=== PATIENT | female | born 1995 | race Caucasian/White ===

== ENCOUNTER 2018-04-17 20:31 | Inpatient (IN) | payer OTHER ==
[~2018-04-17] VITALS: Ht 160 cm; Wt 54.4 kg
[~2018-04-17 20:31] MED LIST: INSU100C4 SQ; INSU100I13 SQ; SUBC1EAC MC
[2018-04-17] MEDS ORDERED: ONDANSETRON PF 4 MG/2 ML VIAL. IV ONE (21:00)
[2018-04-17] MEDS ORDERED: FAMOTIDINE 20 MG/2 ML VIAL IVP ONE (21:00)
[2018-04-17] MEDS ORDERED: IV NORMAL SALINE 1,000ML 1,000 ML IV ONE ×2 (21:00→21:30)
[2018-04-17 21:17] LABS: BACTERIA,URINE 0 /HPF (0-FEW); BILIRUBIN,URINE NEG (NEG); CLARITY,URINE CLEAR; COLOR,URINE STRAW; GLUCOSE,URINE >=1000 mg/dL (NEG); NITRITE,URINE NEG (NEG); RBC,URINE 0 /HPF (0-2); SQUAMOUS EPITHELIAL CELL,UR OCC /LPF; UROBILINOGEN,URINE 0.2 mg/dL (0.2 mg/dL); WBC,URINE 0 /HPF (0-4)
[2018-04-17 21:24] LABS: BASO # 0.1 x10^3/uL (0.0-0.2); BASO % 1 % (0-3); EOS # 0.3 x10^3/uL (0.0-0.7); EOS % 3 % (0-3); HEMOGLOBIN 15.9 g/dL (12.0-15.5); LYMPH # 2.4 x10^3/uL (1.0-4.8); LYMPH % 24 % (24-48); MEAN CORPUSCULAR HEMOGLOBIN 31 pg (25-35); MEAN CORPUSCULAR HGB CONC 33 g/dL (31-37); MEAN CORPUSCULAR VOLUME 94 fL (79-100); MONO # 0.5 x10^3/uL (0.0-1.1); MONO % 5 % (0-9); NEUT # 6.9 x10^3uL (1.8-7.7); NEUT % 68 % (31-73); PLATELET COUNT 402 x10^3/uL (140-400); RED CELL DISTRIBUTION WIDTH 12.8 % (11.5-14.5); WHITE BLOOD COUNT 10.2 x10^3/uL (4.0-11.0)
[2018-04-17] MEDS ORDERED: IV DEXTROSE 5 %-0.45 % NACL 1,000 ML IV SCH (21:27)
[2018-04-17] MEDS ORDERED: INSULIN REGULAR 100 UNIT/ML 3ML VIAL. IV ONE (21:30)
[2018-04-17] MEDS ORDERED: INSULIN REGULAR 100 UNIT/ML 3ML VIAL. SQ ONE (21:30)
[2018-04-17] MEDS ORDERED: INSULIN REGULAR VIAL 150 UNIT in 0.9 % SODIUM CHLORIDE 150ML 150 ML IV PRN (21:30)
[2018-04-17 21:35] LABS: ALBUMIN 4.4 g/dL (3.4-5.0); ALBUMIN/GLOBULIN RATIO 1.1 (1.0-1.7); CALCIUM 9.9 mg/dL (8.5-10.1); GFR 68.1; POTASSIUM 4.4 mmol/L (3.5-5.1); TOTAL BILIRUBIN 0.8 mg/dL (0.2-1.0); TOTAL PROTEIN 8.3 g/dL (6.4-8.2)
[2018-04-17] MEDS ORDERED: ONDANSETRON PF 4 MG/2 ML VIAL. IV PRN (22:15)
--- NOTE | 2018-04-17 22:20 | PHYS DOC ---
Past History Past Medical History: Anxiety, Depression, Diabetes, Liver Disease Past Surgical History: Tonsillectomy Additional Past Surgical Histo: breast augmentation Smoking: Less than 1pk/day Alcohol Use: None Drug Use: None Adult General Chief Complaint Chief Complaint: HYPERGLYCEMIA HPI HPI 22-year-old female who is a type I diabetic presents with report of nausea and vomiting with generalized malaise which started this morning. Patient now reports she is having palpitations and feels dizzy. Patient reports she is compliant with her medications as she wears a insulin pump. Patient reports she checked her blood sugar 1 hour ago and noted it was 405. Patient reports she did give herself 7 units of NovoLog. Reports she is unable to keep any of her other medications down. Patient does report her children have had recent nausea and vomiting. Denies dysuria. Denies . Patient does report recent breast augmentation surgery. Patient also reports she recently started her menstrual period Review of Systems Review of Systems Constitutional: Denies fever or chills; generalized malaise and weakness Eyes: Denies change in visual acuity, redness, or eye pain [] HENT: Denies nasal congestion or sore throat [] Respiratory: Denies cough or shortness of breath [] Cardiovascular: Denies chest pain, reports palpitations GI: Reports abdominal pain, nausea, and vomiting; denies diarrhea : Denies dysuria or hematuria; denies Musculoskeletal: Denies back pain or joint pain [] Integument: Denies rash or skin lesions [] Neurologic: Denies headaches or sensory changes [] Complete systems were reviewed and found to be within normal limits, except as documented in this note. Current Medications Current Medications Current Medications Medications (Trade) Dose Ordered Sig/Jayna Start Time Stop Time Status Last Admin Dose Admin Dextrose/Sodium Chloride 1,000 ml @ 0 mls/hr Q0M 04/17/18 21:27 Famotidine (Pepcid Vial) 20 mg 1X ONCE 04/17/18 21:00 04/17/18 21:01 DC 04/17/18 21:07 20 MG Insulin Human Regular (HumuLIN R VIAL) 6 unit 1X ONCE 04/17/18 21:30 04/17/18 21:31 DC 04/17/18 21:26 6 UNIT Insulin Human Regular 150 unit/ Sodium Chloride 151.5 ml @ 0 mls/hr CONT PRN PRN 04/17/18 21:30 Ondansetron HCl (Zofran) 4 mg 1X ONCE 04/17/18 21:00 04/17/18 21:01 DC 04/17/18 21:07 4 MG Sodium Chloride 1,000 ml @ 1,000 mls/hr 1X ONCE 04/17/18 21:30 04/17/18 22:29 04/17/18 21:27 1,000 MLS/HR Allergies Allergies Allergies Coded Allergies Type Severity Reaction Last Updated Verified zolpidem tartrate Allergy Intermediate hives and hallucinations. 03/10/14 No Physical Exam Physical Exam Constitutional: Well developed, well nourished, uncomfortable HENT: Normocephalic, atraumatic, mucous membranes tacky, breath with ketosis smell Eyes: PERRL, EOMI, conjunctiva normal, no discharge. [] Neck: Normal range of motion, no tenderness, supple, no meningeal signs Cardiovascular: Heart rate tachycardic, no murmur [] Lungs & Thorax: Bilateral breath sounds clear to auscultation; no wheezes, rales, rhonchi Abdomen: Soft, epigastric mild tenderness Skin: Warm, dry, no erythema, no rash. [] Back: No tenderness, no CVA tenderness. [] Extremities: No tenderness, ROM intact, no edema. [] Neurologic: Alert and oriented X 3, normal motor function, normal sensory function, no focal deficits noted. [] Psychologic: Affect normal, judgement normal, mood normal. [] Current Patient Data Vital Signs Vital Signs Date Time Temp Pulse Resp B/P (MAP) Pulse Ox O2 Delivery O2 Flow Rate FiO2 04/17/18 20:33 97.3 115 18 99 Room Air Lab Results Laboratory Tests Test 04/17/18 20:33 04/17/18 20:55 04/17/18 21:01 04/17/18 21:05 Urine Collection Type Unknown Urine Color Straw Urine Clarity Clear Urine pH 5.0 Urine Specific Star 1.010 Urine Protein Neg (NEG-TRACE) Urine Glucose (UA) >=1000 mg/dL (NEG) Urine Ketones (Stick) >=160 mg/dL (NEG) Urine Blood Mod (NEG) Urine Nitrite Neg (NEG) Urine Bilirubin Neg (NEG) Urine Urobilinogen Dipstick 0.2 mg/dL (0.2 mg/dL) Urine Leukocyte Esterase Neg (NEG) Urine RBC 0 /HPF (0-2) Urine WBC 0 /HPF (0-4) Urine Squamous Epithelial Cells Occ /LPF Urine Bacteria 0 /HPF (0-FEW) POC Urine HCG, Qualitative hcg negative (Negative) Glucose (Fingerstick) 531 mg/dL (70-99) *H White Blood Count 10.2 x10^3/uL (4.0-11.0) Red Blood Count 5.10 x10^6/uL (3.50-5.40) Hemoglobin 15.9 g/dL (12.0-15.5) H Hematocrit 48.0 % (36.0-47.0) H Mean Corpuscular Volume 94 fL (79-100) Mean Corpuscular Hemoglobin 31 pg (25-35) Mean Corpuscular Hemoglobin Concent 33 g/dL (31-37) Red Cell Distribution Width 12.8 % (11.5-14.5) Platelet Count 402 x10^3/uL (140-400) H Neutrophils (%) (Auto) 68 % (31-73) Lymphocytes (%) (Auto) 24 % (24-48) Monocytes (%) (Auto) 5 % (0-9) Eosinophils (%) (Auto) 3 % (0-3) Basophils (%) (Auto) 1 % (0-3) Neutrophils # (Auto) 6.9 x10^3uL (1.8-7.7) Lymphocytes # (Auto) 2.4 x10^3/uL (1.0-4.8) Monocytes # (Auto) 0.5 x10^3/uL (0.0-1.1) Eosinophils # (Auto) 0.3 x10^3/uL (0.0-0.7) Basophils # (Auto) 0.1 x10^3/uL (0.0-0.2) Sodium Level 133 mmol/L (136-145) L Potassium Level 4.4 mmol/L (3.5-5.1) Chloride Level 95 mmol/L (98-107) L Carbon Dioxide Level 17 mmol/L (21-32) L Anion Gap 21 (6-14) H Blood Urea Nitrogen 28 mg/dL (7-20) H Creatinine 1.0 mg/dL (0.6-1.0) Estimated GFR (Cockcroft-Gault) 68.1 BUN/Creatinine Ratio 28 (6-20) H Glucose Level 504 mg/dL (70-99) *H Calcium Level 9.9 mg/dL (8.5-10.1) Total Bilirubin 0.8 mg/dL (0.2-1.0) Aspartate Amino Transferase (AST) 8 U/L (15-37) L Alanine Aminotransferase (ALT) 22 U/L (14-59) Alkaline Phosphatase 104 U/L (46-116) Total Protein 8.3 g/dL (6.4-8.2) H Albumin 4.4 g/dL (3.4-5.0) Albumin/Globulin Ratio 1.1 (1.0-1.7) Lipase 121 U/L (73-393) Acetone Level Sm pos (NEG) Test 04/17/18 22:07 Glucose (Fingerstick) 406 mg/dL (70-99) H EKG EKG [] Radiology/Procedures Radiology/Procedures [] Course & Med Decision Making Course & Med Decision Making Pertinent Labs and Imaging studies reviewed. (See chart for details) Type I diabetic presents with history of present illness and physical exam concerning for possible DKA. Ketosis noted on breath. Patient does appear clinically dehydrated. IV fluid hydration provided 2 L of normal saline. Accu- Chek greater than 500. Insulin bolus of 6 units subcutaneously provided. Labs obtained and posted to chart. Acetone positive. Corrected sodium 139. Anion gap 27. PH 7.185. Insulin drip initiated. Patient requiring admission for further evaluation and treatment. Discussed with Dr. Garvey (hospitalist) who is in agreement with admission. Discussed findings and plan with patient and family , who acknowledge understanding and agreement. Dragon Disclaimer Dragon Disclaimer This electronic medical record was generated, in whole or in part, using a voice recognition dictation system. Departure Departure: Impression: Primary Impression: DKA (diabetic ketoacidoses) Disposition: ADMITTED INPATIENT Admitting Physician: Zhanna Garvey Condition: GUARDED Referrals: CONRAD KENDRICK (PCP) Critical Care Time Critical care time was 30 minutes which includes time at bedside, spent in discussion of patient's care with specialists and/or family members, with interpretation of laboratory and/or radiological studies and is exclusive of procedures. Problem Qualifiers Primary Impression: DKA (diabetic ketoacidoses) Diabetes mellitus type: type 1 Diabetes mellitus complication detail: without coma Qualified Codes: E10.10 - Type 1 diabetes mellitus with ketoacidosis without coma MIGUELINA BELTRE DO Apr 17, 2018 22:20
[2018-04-17 22:22] LABS: BGAS PH 7.19 (7.35-7.45)
[2018-04-17] MEDS ORDERED: POTASSIUM CHLORIDE 20MEQ 100 ML IV ONE (23:45)
[2018-04-18] VITALS (8 sets, daily range): BP systolic 90–121; BP diastolic 36–61
[2018-04-18 05:55] LABS: BASO # 0.1 x10^3/uL (0.0-0.2); BASO % 1 % (0-3); EOS # 0.4 x10^3/uL (0.0-0.7); EOS % 4 % (0-3); HEMATOCRIT 37.7 % (36.0-47.0); HEMOGLOBIN 12.9 g/dL (12.0-15.5); LYMPH # 3.5 x10^3/uL (1.0-4.8); LYMPH % 34 % (24-48); MEAN CORPUSCULAR HEMOGLOBIN 32 pg (25-35); MEAN CORPUSCULAR HGB CONC 34 g/dL (31-37); MEAN CORPUSCULAR VOLUME 92 fL (79-100); MONO # 0.8 x10^3/uL (0.0-1.1); MONO % 8 % (0-9); NEUT # 5.4 x10^3uL (1.8-7.7); NEUT % 53 % (31-73); PLATELET COUNT 332 x10^3/uL (140-400); RED BLOOD COUNT 4.09 x10^6/uL (3.50-5.40); RED CELL DISTRIBUTION WIDTH 12.8 % (11.5-14.5); WHITE BLOOD COUNT 10.2 x10^3/uL (4.0-11.0)
[2018-04-18 06:12] LABS: ALBUMIN 2.8 g/dL (3.4-5.0); CREATININE 0.7 mg/dL (0.6-1.0); GFR 102.8; POTASSIUM 4.3 mmol/L (3.5-5.1); TOTAL BILIRUBIN 0.4 mg/dL (0.2-1.0); TOTAL PROTEIN 5.7 g/dL (6.4-8.2)
[2018-04-18] MEDS ORDERED: IBUP-577 PO (09:02)
[2018-04-18] MEDS ORDERED: IBUPROFEN 800 MG TABLET. PO SCH (09:15)
--- NOTE | 2018-04-18 13:05 | NUR ---
[facility]charge [facility] Dis[facility] instructions and discharge home medications reviewed with Patient and a copy given. All questions have been answered and understanding verbalized. The following instructions and handouts were given: discharge insructions, education regarding DKA Discontinued lines and drains: Peripheral IV intact. Patient discharged to Home or Self Care withSelf[facility] Ambulated
--- NOTE | 2018-04-18 16:26 | SSS ---
ADMIT DATE: 04/18/2018 HISTORY OF PRESENT ILLNESS: The patient is a 22-year-old female patient who came to the Emergency Room complaining of recurrent bouts of nausea, vomiting, generalized malaise, palpitation, or dizziness. She is compliant with her medication and also her insulin pump; however, she had her periods during which normally her blood sugar becomes very erratic and difficult to control and also her children came home with what seemed to be some form of gastroenteritis and she had had nausea, vomiting, and diarrhea multiple times. She apparently has had breast augmentation surgery recently and was taking ibuprofen and hydrocodone. She was evaluated in the Emergency Room and was found to be extremely hyperglycemic with a blood sugar of 531. Her blood gases showed that she was acidotic with a pH of 7.19, pCO2 of 28, pO2 of 106, bicarbonate was only 10 and oxygen saturation was 97%. She was started on IV fluid and insulin drip and did extremely well. Her anion gap was closed. Her dilutional hyponatremia resolved and her BUN and creatinine has dramatically improved. The insulin drip was discontinued. She was restarted back on her insulin infusion pump. Has eaten her breakfast and basically she is stable to be discharged home. PAST MEDICAL HISTORY: Significant for type 1 diabetes and diabetic retinopathy as well as endometriosis. PAST SURGICAL HISTORY: Significant for 3 sections, tonsillectomy, laparoscopic surgery for ovarian cyst removal and breast augmentation surgery. ALLERGIES: She is apparently intolerant to AMBIEN as she hallucinates MEDICATIONS: She is currently on following medications: She is on ibuprofen 800 mg 3 times a day. She is on NovoLog insulin as per her insulin infusion pump. She is also on Lantus insulin 30 units at bedtime. She is also on hydrocodone/APAP 5/325 one tablet every 6 hours as needed. FAMILY HISTORY: She has one brother who is older has alopecia and Ton's thyroiditis. One brother younger and healthy and one sister is healthy. She does not keep in contact with her biological father. Her mother is still alive at the age of 49. She is known to have hypertension. She is a survivor of ovarian and cervical cancer. SOCIAL HISTORY: She is , has 2 sons and 1 daughter. She smokes less than a pack a day. Specifically she smokes about 6 cigarettes a day. She does not drink alcohol or use any recreational drugs. She is currently unemployed. Her last menstrual period was started yesterday. Her periods are usually irregular and heavy because of the stage 4 endometriosis. PHYSICAL EXAMINATION: GENERAL: On examining her, she was resting slightly propped up in bed, in no apparent respiratory distress. There is no pallor, jaundice, cyanosis, or thyromegaly. No jugular venous distention. No limb edema. VITAL SIGNS: Her heart rate on arrival was 115, blood pressure was 92/38, temperature was 97.3, respiratory rate was 18 and oxygen saturation was 99% on room air. HEAD, EYES, EARS, NOSE, AND THROAT: Showed normocephalic, atraumatic. NECK: Supple. HEART: Showed normal first and second heart sounds with no gallop, rub, or murmur. CHEST: Clear to auscultation. No crepitation or rhonchi. ABDOMEN: Distended, soft, nontender. No guarding or rigidity. No organomegaly. Hernial orifice intact. Bowel sounds normal. NEUROLOGIC: She is awake, alert, responding appropriately. Cranial nerves intact. She moves extremities without difficulty and she ambulates without assistance or assistive devices. LABORATORY DATA: Her lab work on admission showed a white cell count of 10,000, hemoglobin 15.9, hematocrit 48, MCV 94, and platelet count of 402,000. Her chemistry on admission showed that her serum sodium was 133, potassium 4.4, chloride 95, bicarbonate 17, anion gap of 21, BUN 28, creatinine 1, estimated GFR was 68 mL per minute. Her glucose was 504, calcium was 9.9. Total bilirubin, AST, ALT, alkaline phosphatase were normal. Total protein was 8.3, albumin 4.4, and lipase was 121. Her urinalysis was unremarkable and her serum test was negative. The patient was treated with IV fluid as well as insulin drip and did very well. Her sodium has improved. In fact, her serum sodium before discharge was 137, potassium 4.3, chloride 106, bicarbonate 20, anion gap is down to 11, BUN 18, creatinine 0.7. As she has had no further episodes of nausea or vomiting, no diarrhea, she is tolerating her food, her anion gap has normalized, a decision was made to discharge her home to continue on her current medication. On examining her today at the time of discharge, she looked well and was clearly in no apparent respiratory distress. Her heart rate was 90, blood pressure was 103/53, temperature was 97, respiratory rate was 19, and oxygen saturation was 100% on room air. HEAD, EYES, EARS, NOSE, AND THROAT: Showed normocephalic, atraumatic. NECK: Supple. HEART: Showed normal first and second sounds. No gallop, rub, or murmur. CHEST: Clear to auscultation. No crepitation or rhonchi. ABDOMEN: Scaphoid, soft, nontender. NEUROLOGIC: She is awake, alert, responding appropriately. Cranial nerves intact. She moves extremities without difficulty. Her intake over the last 24 hours was 2100. The output was incompletely recorded. Her lab work prior to discharge showed a white cell count of 10,000, hemoglobin 12.9, hematocrit 37.7, MCV 82, and platelet count of 332,000. Her serum sodium was 137, potassium 4.3, chloride 106, bicarbonate 20, anion gap of 11, BUN 18, creatinine 0.7, estimated GFR was 102 mL per minute. Her glucose was 266. Calcium was 8. Total bilirubin, AST, ALT, alkaline phosphatase were normal. Total protein 5.7, albumin 2.8. She will be discharged home to continue on her ibuprofen 800 mg 3 times a day, insulin aspart as well as insulin sliding scale and as per insulin infusion pump. She is also on Lantus insulin 30 units at bedtime. FINAL DISCHARGE DIAGNOSES: 1. Diabetic ketoacidosis. 2. Acute gastroenteritis. 3. Type 1 diabetes mellitus with diabetic retinopathy. JASON BLANCO MD DR: ANAMARIA/kael JOB#: [id number] / [id number]
== END 2018-04-18 13:07 | disposition home or self-care (01) | DRG 682 ==
LOC: ER 20:31 → ICU 23:57 → UNDOADMIN 23:57 → 1 SOUTH 23:57
PROVIDERS: ADMIT Internal Medicine; ATTEND Internal Medicine
DX: N17.0 Acute kidney failure with tubular necrosis (principal); E10.10 Type 1 diabetes mellitus with ketoacidosis without coma; K52.9 Noninfective gastroenteritis and colitis, unspecified; E10.319 Type 1 diabetes mellitus with unspecified diabetic retinopathy without macular edema; N80.9 Endometriosis, unspecified; Z96.41 Presence of insulin pump (external) (internal); F32.9 Major depressive disorder, single episode, unspecified; F41.9 Anxiety disorder, unspecified; Z79.4 Long term (current) use of insulin; F17.210 Nicotine dependence, cigarettes, uncomplicated; Z80.49 Family history of malignant neoplasm of other genital organs; Z82.49 Family history of ischemic heart disease and other diseases of the circulatory system; Z90.49 Acquired absence of other specified parts of digestive tract; Z79.899 Other long term (current) drug therapy; Z88.8 Allergy status to other drugs, medicaments and biological substances
CPT/HCPCS: 36415; 36600; 80053; 81001; 81025; 82010; 82803; 82947; 83690; 83930; 85025; 87641; 96361; 96372; 96374; 96375; J1815; J2405; J3480; S0028; 99285-25; J7030

== ENCOUNTER 2019-11-20 10:59 | Emergency (ER) | payer OTHER ==
[~2019-11-20] VITALS: Ht 160 cm; Wt 55.0 kg
[~2019-11-20 10:59] MED LIST changes: +IBUP-577 PO
[2019-11-20 11:09] VITALS: BP 114/78
[2019-11-20] MEDS ORDERED: MORPHINE SULFATE 4 MG/ML DISP.SYRIN. IV ONE ×2 (11:15→12:30)
[2019-11-20] MEDS ORDERED: ONDANSETRON PF 4 MG/2 ML VIAL. IVP ONE (11:15)
--- NOTE | 2019-11-20 11:29 | PHYS DOC ---
Past History Past Medical History: Anxiety, Depression, Diabetes, Liver Disease Past Surgical History: Tonsillectomy Additional Past Surgical Histo: breast augmentation Smoking: Less than 1pk/day Alcohol Use: None Drug Use: None General Adult EDM: Chief Complaint: DENTAL PROBLEM HPI: HPI: 24-year-old female presents with a left upper dental pain. The patient has had noted infected tooth. Her dentist says he can work on the tooth until the infection improves. She has been azithromycin. I did switch her to clindamycin yesterday. She has been taking her medications. She is also been on [place], but only has a few left. It still hurts a lot and the left cheek is more swollen. She denies fever chills. They did not attempt to drain an abscess. Review of Systems: Review of Systems: Constitutional: Denies fever or chills Eyes: Denies change in visual acuity HENT: left upper dental pain Respiratory: Denies cough or shortness of breath Cardiovascular: Denies chest pain or edema GI: Denies abdominal pain, nausea, vomiting, bloody stools or diarrhea : Denies dysuria Musculoskeletal: Denies back pain or joint pain Integument: Denies rash Neurologic: Denies headache, focal weakness or sensory changes Endocrine: Denies polyuria or polydipsia Lymphatic: Denies swollen glands Psychiatric: Denies depression or anxiety Heart Score: Risk Factors: Risk Factors: DM, Current or recent (<one month) smoker, HTN, HLP, family history of CAD, obesity. Risk Scores: Score 0 - 3: 2.5% MACE over next 6 weeks - Discharge Home Score 4 - 6: 20.3% MACE over next 6 weeks - Admit for Clinical Observation Score 7 - 10: 72.7% MACE over next 6 weeks - Early Invasive Strategies Allergies: Allergies: Allergies Coded Allergies Type Severity Reaction Last Updated Verified zolpidem tartrate Allergy Intermediate hives and hallucinations. 03/10/14 No Physical Exam: PE: Constitutional: Well developed, well nourished, mild acute distress, non-toxic appearance. [] HENT: Normocephalic, atraumatic, bilateral external ears normal, oropharynx moist, palpable abscess above teeth 13 & 14, nose normal. [] Eyes: PERRLA, EOMI, conjunctiva normal, no discharge. [] Neck: Normal range of motion, no tenderness, supple, no stridor. [] Cardiovascular:Heart rate regular rhythm, no murmur [] Lungs & Thorax: Bilateral breath sounds clear to auscultation [] Abdomen: Bowel sounds normal, soft, no tenderness, no masses, no pulsatile masses. [] Skin: Warm, dry, no erythema, no rash. [] Back: No tenderness, no CVA tenderness. [] Extremities: No tenderness, no cyanosis, no clubbing, ROM intact, no edema. [] Neurologic: Alert and oriented X 3, normal motor function, normal sensory function, no focal deficits noted. [] Psychologic: Affect normal, judgement normal, mood normal. [] EKG: EKG: [] Radiology/Procedures: Radiology/Procedures: [] Course & Med Decision Making: Course & Med Decision Making Pertinent Labs and Imaging studies reviewed. (See chart for details) Patient appears to be in significant pain. She was given a total of 8 mg of morphine in the ER. We applied local anesthesia with topical lidocaine. I performed an I&D. See note below for more details. The patient was not able to tolerate thorough evacuation of the abscess. I discussed the case with the oral maxillofacial surgeon Dr. Rodriguez and he agreed to see the patient in clinic today and develop a plan for the patient. The patient was in agreement with this plan and very grateful. She is stable for discharge at this time. I will discharge her with Percocet. [] Yennifer Disclaimer: Yennifer Disclaimer: This electronic medical record was generated, in whole or in part, using a voice recognition dictation system. Incision and Drainage Indication: Dental abscess Procedure: I obtained verbal consent from the patient for incision and drainage of her dental abscess. The patient was was given morphine by IV as well as topical lidocaine for anesthesia. I made an incision with an 11 blade in the abscess. There was purulent bloody fluid expressed. Despite all the medication, the patient was still unable to tolerate compression of the abscess for good drainage. She refused further procedures at this time. The patient tolerated the procedure poorly. Complications: Uncontrolled pain. Departure Departure: Disposition: 01 HOME, SELF-CARE Condition: STABLE Referrals: CONRAD KENDRICK (PCP) Scripts Oxycodone HCl/Acetaminophen (Percocet 5-325 mg Tablet) 1 Each Tablet 1 TAB PO PRN TID PRN for PAIN MDD 3 Tablet(s) for 5 Days, #15 TAB 0 Refills Prov: TRACE GIBBONS DO 11/20/19 TRACE GIBBONS DO November 20, 2019 11:29
[2019-11-20] MEDS ORDERED: BUPIVACAINE MPF 0.5% 30 ML VIAL. IJ ONE ×2 (11:30)
[2019-11-20 11:43] LABS: BASO # 0.1 x10^3/uL (0.0-0.2); BASO % 1 % (0-3); EOS # 0.2 x10^3/uL (0.0-0.7); EOS % 2 % (0-3); HEMATOCRIT 43.5 % (36.0-47.0); HEMOGLOBIN 14.8 g/dL (12.0-15.5); LYMPH # 1.8 x10^3/uL (1.0-4.8); LYMPH % 19 % (24-48); MEAN CORPUSCULAR HEMOGLOBIN 32 pg (25-35); MEAN CORPUSCULAR HGB CONC 34 g/dL (31-37); MEAN CORPUSCULAR VOLUME 95 fL (79-100); MONO # 0.8 x10^3/uL (0.0-1.1); MONO % 9 % (0-9); NEUT # 6.7 x10^3uL (1.8-7.7); NEUT % 70 % (31-73); PLATELET COUNT 241 x10^3/uL (140-400); RED CELL DISTRIBUTION WIDTH 12.7 % (11.5-14.5); WHITE BLOOD COUNT 9.5 x10^3/uL (4.0-11.0)
[2019-11-20] MEDS ORDERED: LIDOCAINE 2% TOPICAL JELLY 5GM TUBE. TP ONE (11:45)
[2019-11-20 11:52] LABS: CALCIUM 9.2 mg/dL (8.5-10.1); CREATININE 0.6 mg/dL (0.6-1.0); GFR 120.8; POTASSIUM 4.5 mmol/L (3.5-5.1)
[2019-11-20 11:59] LABS: ALBUMIN 3.5 g/dL (3.4-5.0); ALBUMIN/GLOBULIN RATIO 0.9 (1.0-1.7); TOTAL BILIRUBIN 0.4 mg/dL (0.2-1.0); TOTAL PROTEIN 7.3 g/dL (6.4-8.2)
[2019-11-20] MEDS ORDERED: OXYC-325 PO (12:36)
== END 2019-11-20 12:39 | disposition home or self-care (01) ==
LOC: ER 10:59
DX: K04.7 Periapical abscess without sinus (principal); E11.9 Type 2 diabetes mellitus without complications; F17.200 Nicotine dependence, unspecified, uncomplicated; Z88.8 Allergy status to other drugs, medicaments and biological substances
CPT/HCPCS: 36415; 41800; 80053; 85025; 96374; 99284; J2270; J2405

== ENCOUNTER 2019-11-22 22:48 | Emergency (ER) | payer OTHER ==
[~2019-11-22] VITALS: Ht 157.5 cm; Wt 57.6 kg
[~2019-11-22 22:48] MED LIST changes: +OXYC-325 PO
--- NOTE | 2019-11-22 23:11 | PHYS DOC ---
Past History Past Medical History: Anxiety, Depression, Diabetes, Liver Disease Past Surgical History: Tonsillectomy Additional Past Surgical Histo: breast augmentation Smoking: Less than 1pk/day Alcohol Use: None Drug Use: None General Adult EDM: Chief Complaint: DENTAL PROBLEM HPI: HPI: 24 year old female with previously diagnosed dental abscess for which patient was seen in ED and then seen in oral/maxillofacial surgeons office presents with report that she accidentally broke one of the stitches that was holding in a drain from her recent I&D. Patient reports she cannot tolerate the pain anymore because it is causing irritation to the side of her mouth. Patient reports she called her oral surgeon who instructed her to remove the drain herself. Patient reports she tried to remove it but was unable to because there is another stitch that is holding it in. Reports she cannot tolerate it anymore and therefore pr esents to the ER for removal. Review of Systems: Review of Systems: Constitutional: Denies fever or chills HENT: Reports dental pain from incision site of I&D of dental abscess Complete systems were reviewed and found to be within normal limits, except as documented in this note. Allergies: Allergies: Allergies Coded Allergies Type Severity Reaction Last Updated Verified zolpidem tartrate Allergy Intermediate hives and hallucinations. 03/10/14 No Physical Exam: PE: Constitutional: Well developed, well nourished, crying, holding ice pack to her left cheek HENT: Normocephalic, atraumatic, oropharynx moist, left maxillary molar region swollen with [place] drain, no purulent discharge noted, poor dentition appreciated with dental caries, appears to have started to partially heal, no bleeding noted Eyes: Conjunctiva normal, no discharge Neck: Normal range of motion, supple Lungs & Thorax: No respiratory distress, equal chest rise and fall Skin: Warm, dry, no erythema Neurologic: Alert and oriented X 3, no focal deficits noted Psychologic: Affect anxious, judgment normal EKG: EKG: [] Radiology/Procedures: Radiology/Procedures: [] Course & Med Decision Making: Course & Med Decision Making Patient presents with request to remove [place] drain from recent I&D of left maxillary dental abscess by oral surgeon on 11/20/2019. Patient requested to have rena drain removed. Reports she talked to her oral surgeon and he had reportedly told patient to do it herself. Patient was unable and therefore presents to ED for removal. Rena drain was successfully removed intact. NO significant bleeding or drainage from wound. [facility] report obtained which noted patient recently was prescribed [place] 5/325mg x 17 tabs and Percocet 5/325mg x 24 tabs since 11/18/19. Patient advised to continue those prescriptions as needed in addition to her previously prescribed antibiotics and other meds from oral surgeon. Patient stable for discharge with outpatient follow-up with PCP. Discussed findings and plan with patient and family, who acknowledge understanding and agreement. Rodríguezon Disclaimer: Yennifer Disclaimer: This electronic medical record was generated, in whole or in part, using a voice recognition dictation system. Additional Procedures Progress Removal of [place] drain s/p I&D of dental abscess: Verbal consent obtained. Time out performed. Hand hygiene utilized. Wound cleaned with ChloraPrep. Tongue depressor utilized for visualization of [place] drain to left maxillary molar region between gums and inner cheek. An absorbable suture noted (likely Vicryl) which was excised with straight Iris scissors and intact Rena drain successfully removed with thumb forceps. Some discomfort noted by patient during procedure but, patient otherwise tolerated procedure well and without difficulty. No significant bleeding or drainage from wound appreciated s/p removal. Departure Departure: Impression: Primary Impression: Encounter for change or removal of drains Additional Impression: Hx of dental abscess Disposition: 01 HOME, SELF-CARE Condition: STABLE Referrals: CONRAD KENDRICK (PCP) Patient Instructions: Dental Abscess Additional Instructions: Continue previously prescribe pain medication and antibiotics and follow closely with your oral surgeon. MIGUELINA BELTRE DO November 22, 2019 23:11
== END 2019-11-22 23:15 | disposition home or self-care (01) ==
LOC: ER 22:48
DX: Z48.03 Encounter for change or removal of drains (principal); K04.7 Periapical abscess without sinus; F41.9 Anxiety disorder, unspecified; F17.200 Nicotine dependence, unspecified, uncomplicated; Z88.8 Allergy status to other drugs, medicaments and biological substances
CPT/HCPCS: 41800; 99283

== ENCOUNTER 2021-02-12 19:32 | Emergency (ER) | payer OTHER ==
[~2021-02-12] VITALS: Ht 157.5 cm; Wt 57.6 kg
[2021-02-12 19:50] VITALS: BP 126/81
--- NOTE | 2021-02-12 21:33 | PHYS DOC ---
Past History Past Medical History: Other Additional Past Medical Histor: patient refuses to answer questions (SEBASTIÁN PALOMINO APRN) Past Surgical History: Other Additional Past Surgical Histo: oral surgery 11/20/2019; refuses to answer questions about others (SEBASTIÁN PALOMINO APRN) Smoking: Less than 1pk/day Alcohol Use: None Drug Use: None (SEBASTIÁN PALOMINO APRN) General Adult EDM: Chief Complaint: FOOT INJURY PAIN HPI: HPI: Patient is a 25-year-old female who presents to the ER for left fifth toe pain after hitting it on the wall today. Patient rates her pain 6 out of 10. She has been taking [id number] pain medication without any relief in her symptoms. Patient is able to bear weight and ambulate with steady gait. Mario santos reports that the pain is sharp and starts in her fifth toe and radiates to her mid foot with tingling in her third and fourth foot. Patient is concerned because she is a type I diabetic and her doctor told her that if she has a fracture in her foot it could lead to osteomyelitis. (SEBASTIÁN PALOMINO APRN) Review of Systems: Review of Systems: 14 body systems of the review of systems have been reviewed. See HPI for pertinent positive and negative responses, otherwise all other systems are negative, nonpertinent or noncontributory (SEBASTIÁN PALOMINO APRN) Allergies: Allergies: Allergies Coded Allergies Type Severity Reaction Last Updated Verified zolpidem tartrate Allergy Intermediate hives and hallucinations. 03/10/14 No diphenhydramine Allergy Unknown 02/12/21 Yes hydrocodone Allergy Unknown 02/12/21 Yes (SEBASTIÁN PALOMINO APRN) Physical Exam: PE: Constitutional: Well developed, well nourished, no acute distress, non-toxic appearance. [] HENT: Normocephalic, atraumatic Eyes: PERRL, conjunctiva normal, no discharge. [] Neck: Normal range of motion, no stridor Cardiovascular: Normal peripheral perfusion Lungs & Thorax: Normal work of breathing, no tachypnea Skin: Warm, dry, no erythema, no rash, ecchymosis and swelling noted to left fifth toe on the dorsal and plantar aspect, patient reports limited range of motion of fifth toe due to pain, neuro intact, patient able to bear weight and ambulate with steady gait.. [] Back: Normal range of motion Extremities: No tenderness, no cyanosis, no clubbing, ROM intact, no edema. [] Neurologic: Alert and oriented X 3, normal motor function, normal sensory function, no focal deficits noted. [] Psychologic: Affect normal, judgement normal, mood normal. [] (SEBASTIÁN PALOMINO APRN) EKG: EKG: [] (SEBASTIÁN PALOMINO APRN) Radiology/Procedures: Radiology/Procedures: PROCEDURE: FOOT LEFT 3V XR FOOT_LEFT 3 VIEWS Clinical indications: Reason: 5th toe pain from hitting a wall Findings: there is a nondisplaced fracture line of the distal shaft and metaphysis of the fifth proximal phalanx seen in the AP projection only. No dislocation or lytic process is seen. No periosteal reaction is evident. IMPRESSION: Nondisplaced fracture of the fifth proximal phalanx. Electronically signed by: Yogi Mckeon MD (02/12/2021 9:58 PM) [id number] DICTATED AND SIGNED BY: YOGI MCKEON MD DATE: 02/12/212155 CC: TRACE GIBBONS DO; CONRAD KENDRICK; SEBASTIÁN PALOMINO APRN ~MTH0 0 (SEBASTIÁN PALOMINO APRN) Heart Score: C/O Chest Pain: No Risk Factors: Risk Factors: DM, Current or recent (<one month) smoker, HTN, HLP, family history of CAD, obesity. Risk Scores: Score 0 - 3: 2.5% MACE over next 6 weeks - Discharge Home Score 4 - 6: 20.3% MACE over next 6 weeks - Admit for Clinical Observation Score 7 - 10: 72.7% MACE over next 6 weeks - Early Invasive Strategies (SEBASTIÁN PALOMINO APRN) Course & Med Decision Making: Course & Med Decision Making Pertinent Labs and Imaging studies reviewed. (See chart for details) [] Patient is a 25-year-old female being seen in the ER for left fifth toe pain after stubbing it on a wall. X-rays was performed it showed a nondisplaced fracture of the proximal fifth phalanx. Patient's toe megha taped. Patient educated on RICE. I discussed with patient all findings and diagnostic testing as well as the need to follow-up with PCP for further evaluation and treatment or return to the ER if any new or worsening symptoms. Strict return precautions were also discussed at length. Patient voiced understanding and agreement with the plan. Patient is hemodynamically stable at the time of disposition. (SEBASTIÁN PALOMINO APRN) Yennifer Disclaimer: Yennifer Disclaimer: This electronic medical record was generated, in whole or in part, using a voice recognition dictation system. (SEBASTIÁN PALOMINO APRN) Attending Co-Sign The patient was seen and interviewed as well as examined at the bedside. The chart was reviewed. The case was discussed. Agree with the plan of care. (TRACE GIBBONS DO) Departure Departure: Impression: Primary Impression: Toe contusion Qualified Codes: S90.122A - Contusion of left lesser toe(s) without damage to nail, initial encounter Disposition: HOME / SELF CARE / HOMELESS Condition: GOOD Referrals: CONRAD KENDRICK (PCP) Patient Instructions: Megha Taping of Toes, RICE - Routine Care for Injuries Additional Instructions: You were seen in the ER today for your left pinky toe injury after stubbing it on a wall. We performed x-ray of the toes and it did show a nondisplaced fracture. We are going to megha tape your toes for comfort and support. You can take Tylenol or ibuprofen for pain. Can also apply ice. Elevation may help with the swelling. This is most likely a soft tissue injury and it should improve with time. Please follow-up with your primary care provider tomorrow regarding your ER visit. If you develop worsening of your pain, inability to bear weight or walk, decreased sensation in your toes, blue/purple discoloration of your toes please return to the ER immediately. EMERGENCY DEPARTMENT GENERAL DISCHARGE INSTRUCTIONS Thank you for coming to [facility] (ED) today and trusting us with you care. We trust that you had a positivie experience in our Emergency Department. If you wish to speak to the department management, you may call the director at [phone]. YOUR FOLLOW UP INSTRUCTIONS ARE FOLLOWS: 1. Do you have a private Doctor? If you do not have a private doctor, please ask for a resource list of physicians or clinics that may be able to assist you with follow up care. 2. The Emergency Physician has interpreted your x-rays. The X-Ray specialist will also review them. If there is a change in the findings, you will be notified in 48 hours when at all possible. 3. A lab test or culture has been done, your results will be reviewed and you will be notified if you need a change in treatment. ADDITIONAL INSTRUCTIONS AND INFORMATION: 1. Your care today has been supervised by a physician who is specially trained in emergency care. Many problems require more than one evaluation for a complete diagnosis and treatment. We recommend that you schedule your follow up appointment as recommended to ensure complete treatment of you illness or injury. If you are unable to obtain follow up care and continue to have a problem, or if your condition worsens, we recommend that you return to the ED. 2. We are not able to safely determine your condition over the phone nor are we able to give sound medical advice over the phone. For these safety reasons, if you call for medical advice we will ask you to come to the ED for further evaluation. 3. If you have any questions regarding these discharge instructions please call the ED at [phone]. SAFETY INFORMATION: In the interest of safety, wellness, and injury prevention; we encourage you to wear your sealbelt, if you smoke; quite smoking, and we encourage family to use a pr otective helmet for bicycling and other sporting events that present an increased risk for head injury. IF YOUR SYMPTOMS WORSEN OR NEW SYMPTOMS DEVELOP, OR YOU HAVE CONCERNS ABOUT YOUR CONDITION; OR IF YOUR CONDITION WORSENS WHILE YOU ARE WAITING FOR YOUR FOLLOW UP APPOINTMENT; EITHER CONTACT YOUR PRIMARY CARE DOCTOR, THE PHYSICIAN WHOSE NAME AND NUMBER YOU WERE GIVEN, OR RETURN TO THE ED IMMEDIATELY. SEBASTIÁN PALOMINO APRN Feb 12, 2021 21:33 TRACE GIBBONS DO Feb 13, 2021 05:38
--- NOTE | 2021-02-12 22:00 | RAD ---
XR FOOT_LEFT 3 VIEWS Clinical indications: Reason: 5th toe pain from hitting a wall Findings: there is a nondisplaced fracture line of the distal shaft and metaphysis of the fifth proxi mal phalanx seen in the AP projection only. No dislocation or lytic process is seen. No periosteal re action is evident. IMPRESSION: Nondisplaced fracture of the fifth proximal phalanx. Electronically signed by: Tonio Mckeon MD (02/12/2021 9:58 PM) [id number]
== END 2021-02-12 22:10 | disposition home or self-care (01) ==
LOC: ER 19:32
DX: S90.122A Contusion of left lesser toe(s) without damage to nail, initial encounter (principal); F17.200 Nicotine dependence, unspecified, uncomplicated; E10.9 Type 1 diabetes mellitus without complications; Z88.8 Allergy status to other drugs, medicaments and biological substances; Z88.5 Allergy status to narcotic agent; W22.01XA Walked into wall, initial encounter; Y93.89 Activity, other specified; Y92.89 Other specified places as the place of occurrence of the external cause; Y99.8 Other external cause status
CPT/HCPCS: 73630; 99283